=== PATIENT | female | born 1955 | race Caucasian/White ===

== ENCOUNTER 2017-04-10 14:47 | Emergency (ER) | payer OTHER ==
[~2017-04-10] VITALS: Ht 175.3 cm; Wt 118.0 kg
[2017-04-10 15:44] LABS: BASOPHILS # (AUTO) 0.1 X10'3 (0-0.2); BASOPHILS % (AUTO) 0.7 % (0-1); EOSINOPHILS # (AUTO) 0.2 X10'3 (0-0.9); HEMATOCRIT 45.6 % (35.0-45.0); HEMOGLOBIN 15.1 g/dl (12.0-16.0); LYMPHOCYTES # (AUTO) 2.2 X10'3 (1.1-4.8); LYMPHOCYTES % (AUTO) 28.1 % (21-51); MEAN CORPUSCULAR HEMOGLOBIN 30.4 PG (27.0-31.0); MEAN CORPUSCULAR HGB CONC 33.2 % (33.0-36.5); MEAN CORPUSCULAR VOLUME 91.6 FL (78-98); MEAN PLATELET VOLUME 7.5 FL (7.4-10.4); MONOCYTES # (AUTO) 0.5 X10'3 (0-0.9); MONOCYTES % (AUTO) 6.8 % (2-12); NEUTROPHILS # (AUTO) 4.8 X10'3 (1.8-7.7); NEUTROPHILS % (AUTO) 62.4 % (42-75); PLATELET COUNT 277 X10'3 (140-440); RED BLOOD COUNT 4.98 X10'6 (4.20-5.60); RED CELL DISTRIBUTION WIDTH 13.2 % (11.5-14.5); WHITE BLOOD COUNT 7.7 X10'3 (4.5-11.0)
[2017-04-10 15:53] LABS: INR 0.9 INR; PARTIAL THROMBOPLASTIN TIME 24 SECONDS (22-32); PROTHROMBIN TIME 9.7 SECONDS (9.0-12.0)
[2017-04-10 16:04] LABS: ALANINE AMINOTRANSFERASE 36 U/L (12-78); ALBUMIN 4.3 G/DL (3.4-5.0); ALBUMIN/GLOBULIN RATIO 1.2 (1.1-1.5); ALKALINE PHOSPHATASE 95 IU/L (46-116); ANION GAP 9 (8-16); ASPARTATE AMINO TRANSFERASE 21 U/L (10-37); BILIRUBIN,TOTAL 0.3 MG/DL (0.1-1.0); BLOOD UREA NITROGEN 13 MG/DL (7-18); BUN/CREATININE RATIO 16.3 (6.6-38.0); CALCIUM 9.9 MG/DL (8.5-10.1); CHLORIDE 102 MMOL/L (99-107); GLUCOSE 185 MG/DL (70-104); POTASSIUM 3.9 MMOL/L (3.5-5.1); SODIUM 140 MMOL/L (135-145); TOTAL CARBON DIOXIDE 29.1 MMOL/L (24-32); eGFR 72 ML/MIN
[2017-04-10] MEDS ORDERED: meclizine 12.5mg tablet PO ONE (16:25)
[2017-04-10] MEDS ORDERED: GLIP5TAB13 PO (16:32)
[2017-04-10] MEDS ORDERED: FENO145T38 PO (16:32)
[2017-04-10] MEDS ORDERED: PANT-47 PO (16:37)
[2017-04-10] MEDS ORDERED: DULO-31 PO (16:37)
[2017-04-10] MEDS ORDERED: HYDR12.55 PO (16:37)
[2017-04-10] MEDS ORDERED: PRAV20TA4 PO (16:37)
[2017-04-10] MEDS ORDERED: METH-360 PO (16:37)
[2017-04-10] MEDS ORDERED: MONT10TA24 PO (16:37)
[2017-04-10] MEDS ORDERED: BUPR150T8 PO (16:37)
[2017-04-10 16:46] VITALS: BP 175/85
[2017-04-10] MEDS ORDERED: DOXY100C43 PO (16:56)
== END 2017-04-10 16:48 | disposition home or self-care (01) ==
LOC: ER 14:48
DX: Z76.0 Encounter for issue of repeat prescription (principal); R42 Dizziness and giddiness; F12.10 Cannabis abuse, uncomplicated; M79.7 Fibromyalgia; Z90.49 Acquired absence of other specified parts of digestive tract; Z79.899 Other long term (current) drug therapy; Z88.8 Allergy status to other drugs, medicaments and biological substances; Z91.013 Allergy to seafood
CPT/HCPCS: 36415; 70450; 71045; 80053; 82948; 84484; 85025; 85610; 85730; 93005; 99285; J7030; J8597

== ENCOUNTER 2018-08-19 00:22 | Outpatient (CLI) | payer OTHER ==
[~2018-08-19 00:22] MED LIST: DULO-31 PO; GLIP5TAB13 PO; HYDR12.55 PO; METH-360 PO; MONT10TA24 PO; PANT-47 PO; PRAV20TA4 PO
== END 2018-08-19 23:59 | disposition home or self-care (01) ==
LOC: DIABETIC 00:22
PROVIDERS: ATTEND Specialist
DX: E11.65 Type 2 diabetes mellitus with hyperglycemia (principal); I10 Essential (primary) hypertension; Z79.84 Long term (current) use of oral hypoglycemic drugs; Z79.899 Other long term (current) drug therapy
CPT/HCPCS: G0108

== ENCOUNTER 2018-11-18 03:36 | Outpatient (CLI) | payer OTHER | END 2018-11-18 23:59 | disposition home or self-care (01) | LOC: DIABETIC 03:36 | PROVIDERS: ATTEND Specialist | DX: E11.9 Type 2 diabetes mellitus without complications (principal) | CPT/HCPCS: G0108 ==

== ENCOUNTER 2023-01-21 09:56 | Outpatient (CLI) | payer BC, MEDICARE ==
[~2023-01-21 09:56] MED LIST changes: +MONT-40 PO; -MONT10TA24 PO
[2023-01-21 10:21] LABS: TOTAL HEMOGLOBIN 11.5 G/dl (12.0-16.0)
== END 2023-01-21 23:59 | disposition home or self-care (01) ==
LOC: RT 09:56
PROVIDERS: ATTEND Internal Medicine Pulmonary Disease
DX: Z01.818 Encounter for other preprocedural examination (principal); R06.02 Shortness of breath; J44.9 Chronic obstructive pulmonary disease, unspecified
CPT/HCPCS: 85018; 94010; 94727; 94729; C1758